=== PATIENT | male | born 1965 | race Caucasian/White ===

== ENCOUNTER 2021-02-13 22:38 | Inpatient (IN) | payer MEDICARE ==
[2021-02-13] MEDS ORDERED: Clindamycin/D5W 600 mg/50 ml Premix Bag ONE (23:46)
[2021-02-14 00:15] LABS: #Eosinphils 0.3 thou/uL (0.0-0.7); #Lymphocytes 3.5 thou/uL (1.20-3.40); #Monocytes 0.6 thou/uL (0.11-0.59); %Basophils 0.3 % (0.0-1.0); %Eosinophils 2.1 % (0.0-10.0); %Lymphocytes 28.1 % (21.0-51.0); %Monocytes 5.1 % (0.0-10.0); %Neutrophils 64.4 % (42.0-75.0); Hemoglobin 15.5 g/dL (14.0-18.0); Mean Corpuscular Hemoglobin 31.4 pg (27.0-31.0); Mean Corpuscular Volume 92.1 fL (78.0-98.0); Mean Platelet Volume 7.3 fL (7.4-10.4); Platelet Count 219 thou/uL (130-400); RBC Distribution Width 13.7 % (11.5-14.5); Red Blood Cell (RBC) Count 4.95 mill/uL (4.70-6.10); White Blood Cell (WBC) Count 12.4 thou/uL (4.8-10.8)
[2021-02-14 00:40] LABS: ALT (SGPT) 20 U/L (8-55); AST (SGOT) 14 U/L (5-34); Albumin 3.8 g/dL (3.5-5.0); Alkaline Phosphatase 80 U/L (40-110); Anion Gap 13 mmol/L (10-20); BUN (Urea Nitrogen) 12 mg/dL (8.4-25.7); Bilirubin, Total 0.4 mg/dL (0.2-1.2); Calc. Creatinine Clearance 0 mL/min (70-130); Carbon Dioxide 28 mmol/L (22-29); Chloride 103 mmol/L (98-107); Globulin 3.2 g/dL (2.4-3.5); Glucose 130 mg/dL (70-105); Sodium 140 mmol/L (136-145)
[2021-02-14] MEDS ORDERED: Ondansetron ODT 4 MG TAB PO PRN (04:14)
[2021-02-14] MEDS ORDERED: Ondansetron PF 4 MG/2 ML Vial IVP PRN (04:14)
[2021-02-14 05:06] LABS: SARS-CoV-2 NAA Rapid Test Not Detected (NotDetected)
[2021-02-14] MEDS ORDERED: Dextrose 5% in Water 1,000 ML IV PRN (05:13)
[2021-02-14] MEDS ORDERED: Dextrose 50% Abboject 50 ML SYRINGE SLOW IVP PRN (05:13)
[2021-02-14] MEDS ORDERED: HumaLOG 300 UNITS/3 ML VIAL SC PRN (05:13)
[2021-02-14 06:03] VITALS: BMI 42.3
[2021-02-14] MEDS ORDERED: Piperacillin/Tazobactam 4.5 GM VIAL ONE (06:25)
[2021-02-14] MEDS ORDERED: Enoxaparin Sodium 40 MG/0.4 ML SYRINGE ONE (08:52)
[2021-02-14] MEDS: Enoxaparin Sodium 40 MG/0.4 ML SYRINGE SC SCH (09:13)
[2021-02-14] MEDS ORDERED: hydrALAZINE 20 MG/ML VIAL SLOW IVP PRN (10:46)
[2021-02-14] MEDS ORDERED: HYDROcodone/Acetaminophen 5/325 mg Tablet ONE (12:35)
[2021-02-14] MEDS: HYDROcodone/Acetaminophen 5/325 mg Tablet PO PRN ×3 (12:36→20:29)
[2021-02-14] MEDS ORDERED: Furosemide 40 MG/4 ML VIAL SLOW IVP SCH (13:30)
[2021-02-14] MEDS: Piperacillin/Tazobactam 4.5 GM in Sodium Chloride 0.9% 100 ML IVPB SCH ×2 (14:38→21:56)
[2021-02-14] MEDS: Gabapentin 300 MG CAP PO SCH ×2 (14:39→20:30)
[2021-02-14] MEDS: Acetaminophen 325 MG TAB PO PRN (20:30)
[2021-02-14] MEDS ORDERED: Morphine 2 MG/ML VIAL SLOW IVP SCH (22:30)
[2021-02-15] MEDS: HYDROcodone/Acetaminophen 5/325 mg Tablet PO PRN ×4 (00:29→14:32)
[2021-02-15] MEDS: Acetaminophen 325 MG TAB PO PRN ×2 (00:29→05:22)
[2021-02-15] MEDS: Piperacillin/Tazobactam 4.5 GM in Sodium Chloride 0.9% 100 ML IVPB SCH (05:23)
[2021-02-15 05:29] LABS: #Eosinphils 0.4 thou/uL (0.0-0.7); #Lymphocytes 2.7 thou/uL (1.20-3.40); #Monocytes 0.6 thou/uL (0.11-0.59); #Neutrophils 7.2 thou/uL (1.40-6.50); %Basophils 0.4 % (0.0-1.0); %Eosinophils 3.5 % (0.0-10.0); %Lymphocytes 24.5 % (21.0-51.0); %Monocytes 5.6 % (0.0-10.0); Hemoglobin 16.1 g/dL (14.0-18.0); Mean Corpuscular HGB CONC 33.1 g/dL (32.0-36.0); Mean Corpuscular Hemoglobin 30.9 pg (27.0-31.0); Mean Corpuscular Volume 93.3 fL (78.0-98.0); Mean Platelet Volume 7.9 fL (7.4-10.4); Platelet Count 213 thou/uL (130-400); Red Blood Cell (RBC) Count 5.22 mill/uL (4.70-6.10); White Blood Cell (WBC) Count 10.9 thou/uL (4.8-10.8)
[2021-02-15 05:40] LABS: Anion Gap 13 mmol/L (10-20); BUN (Urea Nitrogen) 13 mg/dL (8.4-25.7); Calc. Creatinine Clearance 191 mL/min (70-130); Calcium 8.7 mg/dL (7.8-10.44); Carbon Dioxide 31 mmol/L (22-29); Chloride 104 mmol/L (98-107); Glucose 118 mg/dL (70-105); Potassium 4.3 mmol/L (3.5-5.1); Sodium 144 mmol/L (136-145)
[2021-02-15] MEDS: Gabapentin 300 MG CAP PO SCH ×3 (08:39→21:06)
[2021-02-15] MEDS: Enoxaparin Sodium 40 MG/0.4 ML SYRINGE SC SCH (08:40)
[2021-02-15] MEDS: Aspirin 81 mg Enteric Coated Tablet PO SCH (08:40)
[2021-02-15] MEDS ORDERED: Furosemide 40 MG/4 ML VIAL SLOW IVP SCH (09:00)
[2021-02-15] MEDS: HumaLOG 300 UNITS/3 ML VIAL SC PRN (12:44)
[2021-02-15] MEDS ORDERED: CEFAZOLIN 1 GM in Sodium Chloride 0.9% 100 ML IVPB SCH (14:00)
[2021-02-15] MEDS: ceFAZolin 1 GM/D5W 1 GM in Premix Bag 1 BAG IVPB SCH ×2 (15:57→21:08)
[2021-02-15] MEDS ORDERED: HYDROcodone/Acetaminophen 5/325 mg Tablet PO PRN (17:28)
[2021-02-15] MEDS: Melatonin 3 MG TAB PO PRN (23:49)
[2021-02-16] MEDS: ceFAZolin 1 GM/D5W 1 GM in Premix Bag 1 BAG IVPB SCH ×3 (05:22→21:13)
[2021-02-16 05:46] LABS: #Eosinphils 0.4 thou/uL (0.0-0.7); #Lymphocytes 2.9 thou/uL (1.20-3.40); #Monocytes 0.7 thou/uL (0.11-0.59); #Neutrophils 7.8 thou/uL (1.40-6.50); %Basophils 0.3 % (0.0-1.0); %Eosinophils 3.1 % (0.0-10.0); %Lymphocytes 24.6 % (21.0-51.0); %Monocytes 5.5 % (0.0-10.0); %Neutrophils 66.5 % (42.0-75.0); Mean Corpuscular HGB CONC 32.5 g/dL (32.0-36.0); Mean Corpuscular Hemoglobin 30.5 pg (27.0-31.0); Mean Corpuscular Volume 93.6 fL (78.0-98.0); Platelet Count 213 thou/uL (130-400); RBC Distribution Width 13.8 % (11.5-14.5); Red Blood Cell (RBC) Count 5.26 mill/uL (4.70-6.10); White Blood Cell (WBC) Count 11.8 thou/uL (4.8-10.8)
[2021-02-16 06:04] LABS: Anion Gap 14 mmol/L (10-20); BUN (Urea Nitrogen) 13 mg/dL (8.4-25.7); Calc. Creatinine Clearance 222 mL/min (70-130); Carbon Dioxide 27 mmol/L (22-29); Chloride 103 mmol/L (98-107); Glucose 117 mg/dL (70-105); Magnesium 1.9 mg/dL (1.6-2.6); Potassium 3.7 mmol/L (3.5-5.1); Sodium 140 mmol/L (136-145)
[2021-02-16] MEDS: HYDROcodone/Acetaminophen 5/325 mg Tablet PO PRN (08:20)
[2021-02-16] MEDS: Furosemide 20 MG TAB PO SCH (08:21)
[2021-02-16] MEDS: Aspirin 81 mg Enteric Coated Tablet PO SCH (08:21)
[2021-02-16] MEDS: Enoxaparin Sodium 40 MG/0.4 ML SYRINGE SC SCH (08:22)
[2021-02-16] MEDS: Gabapentin 300 MG CAP PO SCH ×3 (08:22→19:52)
[2021-02-16] MEDS: HumaLOG 300 UNITS/3 ML VIAL SC PRN (11:36)
[2021-02-16] MEDS ORDERED: Furosemide 20 MG/2 ML VIAL SLOW IVP SCH (14:00)
[2021-02-16] MEDS: diphenhydrAMINE 25 MG CAP PO PRN (21:50)
[2021-02-16] MEDS: Melatonin 3 MG TAB PO PRN (21:50)
[2021-02-17] MEDS: ceFAZolin 1 GM/D5W 1 GM in Premix Bag 1 BAG IVPB SCH ×3 (06:00→21:11)
[2021-02-17 06:03] LABS: #Eosinphils 0.4 thou/uL (0.0-0.7); #Lymphocytes 2.9 thou/uL (1.20-3.40); #Monocytes 0.7 thou/uL (0.11-0.59); #Neutrophils 7.3 thou/uL (1.40-6.50); %Basophils 0.4 % (0.0-1.0); %Eosinophils 3.5 % (0.0-10.0); %Lymphocytes 25.5 % (21.0-51.0); %Monocytes 5.8 % (0.0-10.0); %Neutrophils 64.7 % (42.0-75.0); Hemoglobin 15.9 g/dL (14.0-18.0); Mean Corpuscular HGB CONC 33.7 g/dL (32.0-36.0); Mean Corpuscular Hemoglobin 31.1 pg (27.0-31.0); Mean Corpuscular Volume 92.3 fL (78.0-98.0); Mean Platelet Volume 7.6 fL (7.4-10.4); Platelet Count 216 thou/uL (130-400); RBC Distribution Width 13.6 % (11.5-14.5); Red Blood Cell (RBC) Count 5.13 mill/uL (4.70-6.10); White Blood Cell (WBC) Count 11.2 thou/uL (4.8-10.8)
[2021-02-17] MEDS: Gabapentin 300 MG CAP PO SCH ×3 (08:11→20:28)
[2021-02-17] MEDS: Aspirin 81 mg Enteric Coated Tablet PO SCH (08:12)
[2021-02-17] MEDS: Enoxaparin Sodium 40 MG/0.4 ML SYRINGE SC SCH (08:12)
[2021-02-17] MEDS: Furosemide 20 MG TAB PO SCH (08:12)
[2021-02-17] MEDS: HumaLOG 300 UNITS/3 ML VIAL SC PRN (12:20)
[2021-02-17] MEDS: diphenhydrAMINE 25 MG CAP PO PRN (23:07)
[2021-02-18 05:41] LABS: #Basophils 0.1 thou/uL (0.0-0.2); #Eosinphils 0.4 thou/uL (0.0-0.7); #Lymphocytes 2.7 thou/uL (1.20-3.40); #Monocytes 0.6 thou/uL (0.11-0.59); #Neutrophils 6.6 thou/uL (1.40-6.50); %Basophils 0.6 % (0.0-1.0); %Lymphocytes 26.2 % (21.0-51.0); %Monocytes 5.7 % (0.0-10.0); %Neutrophils 63.4 % (42.0-75.0); Hemoglobin 16.5 g/dL (14.0-18.0); Mean Corpuscular HGB CONC 31.6 g/dL (32.0-36.0); Mean Corpuscular Hemoglobin 29.1 pg (27.0-31.0); Mean Corpuscular Volume 92.1 fL (78.0-98.0); Mean Platelet Volume 7.5 fL (7.4-10.4); Platelet Count 217 thou/uL (130-400); RBC Distribution Width 13.7 % (11.5-14.5); Red Blood Cell (RBC) Count 5.67 mill/uL (4.70-6.10); White Blood Cell (WBC) Count 10.5 thou/uL (4.8-10.8)
[2021-02-18] MEDS: ceFAZolin 1 GM/D5W 1 GM in Premix Bag 1 BAG IVPB SCH (05:49)
[2021-02-18 05:59] LABS: Anion Gap 13 mmol/L (10-20); BUN (Urea Nitrogen) 10 mg/dL (8.4-25.7); Calc. Creatinine Clearance 225 mL/min (70-130); Calcium 9.2 mg/dL (7.8-10.44); Carbon Dioxide 27 mmol/L (22-29); Chloride 104 mmol/L (98-107); Glucose 109 mg/dL (70-105); Potassium 3.9 mmol/L (3.5-5.1); Sodium 140 mmol/L (136-145)
[2021-02-18] MEDS: Gabapentin 300 MG CAP PO SCH (09:16)
[2021-02-18] MEDS: Enoxaparin Sodium 40 MG/0.4 ML SYRINGE SC SCH (09:16)
[2021-02-18] MEDS: Aspirin 81 mg Enteric Coated Tablet PO SCH (09:16)
[2021-02-18] MEDS: Furosemide 20 MG TAB PO SCH (09:17)
[2021-02-18 13:38] VITALS: BP 148/77; TEMP 98
== END 2021-02-18 12:12 | disposition home or self-care (01) | DRG 603 ==
LOC: ERS 22:38 → ERHOLD 02-14 02:28 → SURG A 02-14 13:14 → OBSVTOIN 02-16 14:19
PROVIDERS: ADMIT Student in an Organized Health Care Education/Training Program; ATTEND Internal Medicine
DX: L03.116 Cellulitis of left lower limb (principal); Z68.41 Body mass index [BMI] 40.0-44.9, adult; Z20.822 Contact with and (suspected) exposure to COVID-19; L03.115 Cellulitis of right lower limb; E11.9 Type 2 diabetes mellitus without complications; E78.00 Pure hypercholesterolemia, unspecified; F17.200 Nicotine dependence, unspecified, uncomplicated; I25.10 Atherosclerotic heart disease of native coronary artery without angina pectoris; Z95.1 Presence of aortocoronary bypass graft; Z79.82 Long term (current) use of aspirin; Z79.899 Other long term (current) drug therapy; E66.01 Morbid (severe) obesity due to excess calories
CPT/HCPCS: 36415; 36416; 71045; 80048; 80053; 83735; 84145; 85025; 86140; 87040; 96365; 96372; 96375; 96376; G0378; J0360; J0690; J1650; J1815; J1940; J2270; J2543; J3490; Q0163; U0002; U0005